=== PATIENT | male | born 1995 | race Caucasian/White ===

== ENCOUNTER 2018-04-12 10:41 | Emergency (ER) | payer SELFPAY ==
[~2018-04-12] VITALS: Ht 195.6 cm; Wt 87.0 kg
[2018-04-12] MEDS ORDERED: ACETAMINOPHEN 325MG TABLET PO STA (14:07)
[2018-04-12] MEDS ORDERED: SODIUM CHLORIDE 0.9% 1,000 ML IV ONE (14:07)
[2018-04-12] MEDS ORDERED: KETOROLAC 30MG/ML VIAL IV STA (14:07)
[2018-04-12 14:26] LABS: BASOPHILS % 0.3 % (0.0-2.0); EOSINOPHILS % 1.7 % (0.0-5.0); HEMOGLOBIN. 13.6 g/dL (14.0-18.0); LYMPHOCYTES % 9.1 % (20.0-50.0); MEAN CORPUSCULAR HEMOGLOBIN 31.1 pg (28.0-32.0); MEAN CORPUSCULAR VOLUME 91.1 fL (80.0-94.0); MEAN PLATELET VOLUME 10.5 fl (7.4-10.4); MONOCYTES % 12.6 % (2.0-8.0); NEUTROPHILS % 76.3 % (40.0-76.0); PLATELET 164 x1000/uL (130-400); RED BLOOD CELL COUNT 4.39 mill/uL (4.7-6.1); RED CELL DISTRIBUTION WIDTH 12.9 % (11.6-14.6)
[2018-04-12 14:32] LABS: CHLORIDE 103 mEq/L (98-107)
[2018-04-12 15:26] VITALS: BP 114/62
== END 2018-04-12 15:39 | disposition home or self-care (01) ==
LOC: ER 13:43
DX: R07.9 Chest pain, unspecified (principal); F17.200 Nicotine dependence, unspecified, uncomplicated; F12.10 Cannabis abuse, uncomplicated
CPT/HCPCS: 36415; 71045; 80053; 85025; 93005; 96374; 99285; J1885; J7030; Z7610

== ENCOUNTER 2019-02-15 15:51 | Emergency (ER) | payer MEDICAID ==
[~2019-02-15] VITALS: Ht 198.1 cm; Wt 86.0 kg
[2019-02-15] MEDS ORDERED: KETOROLAC 60MG/2ML VIAL IM ONE (16:30)
[2019-02-15] MEDS ORDERED: HYDROCODONE/ACETAMINOPHEN 5/325MG TABLET PO ONE (16:30)
[2019-02-15 17:08] VITALS: BP 168/91
== END 2019-02-15 17:44 | disposition home or self-care (01) ==
LOC: ER 15:51
DX: S50.02XA Contusion of left elbow, initial encounter (principal); F17.200 Nicotine dependence, unspecified, uncomplicated; F12.10 Cannabis abuse, uncomplicated; X58.XXXA Exposure to other specified factors, initial encounter; Y93.89 Activity, other specified; Y92.89 Other specified places as the place of occurrence of the external cause; Y99.8 Other external cause status
CPT/HCPCS: 73080; 96372; 99283; J1885

== ENCOUNTER 2019-06-20 17:05 | Emergency (ER) | payer MEDICAID ==
[~2019-06-20] VITALS: Ht 200.7 cm; Wt 98.0 kg
[2019-06-20 17:23] VITALS: BP 145/76
== END 2019-06-20 20:57 | disposition left against medical advice (07) ==
LOC: ER 17:05
DX: Z53.21 Procedure and treatment not carried out due to patient leaving prior to being seen by health care provider (principal)